=== PATIENT | male | born 1950 | race Caucasian/White ===

== ENCOUNTER → 2017-08-28 | Outpatient (CLI) | payer OTHER | LOC: BHLMT 13:15 | PROVIDERS: ATTEND Internal Medicine Cardiovascular Disease | DX: I70.90 Unspecified atherosclerosis (principal) | CPT/HCPCS: 76775-PO ==

== ENCOUNTER → 2017-09-09 | Outpatient (CLI) | payer OTHER | LOC: GIMAGING 11:33 | PROVIDERS: ATTEND Internal Medicine | DX: J98.4 Other disorders of lung (principal); J45.40 Moderate persistent asthma, uncomplicated | CPT/HCPCS: 71046-PO ==